=== PATIENT | male | born 1995 | race American Indian/Alaskan Native ===

== ENCOUNTER 2018-09-30 15:00 | Emergency (ER) | payer OTHER, BC ==
[2018-09-30] MEDS ORDERED: Iopamidol 612 MG/ML 100 ML Bottle IVPUSH ONE (15:12)
[2018-09-30] MEDS ORDERED: Sodium Chloride 0.9% 1,000 ML IV ONE (15:12)
[2018-09-30] MEDS ORDERED: Sodium Chloride 0.9% 10 ML Syringe FLUSH PRN (15:14)
[2018-09-30] MEDS ORDERED: Diphtheria,Pertussis(Acell),Tetanus Vaccine 0.5 ML SDV IM ONE (15:16)
[2018-09-30] MEDS ORDERED: Lidocaine 1% 30 ML SDV INJECT ONE (15:16)
[2018-09-30] MEDS ORDERED: Bacitracin Oint 1 GM U/D Packet TOP ONE (15:16)
[2018-09-30 16:06] LABS: ANION GAP 17.4; CHLORIDE,CL 99 mmol/L (101-111); SODIUM,NA 136 mmol/L (135-145)
[2018-09-30 17:09] VITALS: BP 100/80
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
== END 2018-09-30 17:53 | disposition home or self-care (01) ==
LOC: DL.ED 15:00
DX: S06.0X9A Concussion with loss of consciousness of unspecified duration, initial encounter (principal); S01.81XA Laceration without foreign body of other part of head, initial encounter; S30.1XXA Contusion of abdominal wall, initial encounter; Z88.2 Allergy status to sulfonamides; Z88.1 Allergy status to other antibiotic agents; Z79.899 Other long term (current) drug therapy; W18.30XA Fall on same level, unspecified, initial encounter; Z23 Encounter for immunization
CPT/HCPCS: 12011; 36415; 70450; 71045; 74177; 80053; 82150; 82962; 83690; 84484; 85025; 85610; 85730; 90471; 90715; 93005; 96360; 99285; G0480; J7030; Q9967